=== PATIENT | male | born 1930 | race Caucasian/White ===

== ENCOUNTER 2017-08-16 17:38 | Emergency (ER) | payer MEDICARE, OTHER ==
[~2017-08-16] VITALS: Ht 162.6 cm; Wt 50.0 kg
[2017-08-16 17:42] VITALS: BP 189/95; PULSE 77; RESP 17; TEMP 98.7
[2017-08-16] MEDS ORDERED: SODIUM CHLORID 0.9% 500 ML INJ 500 ML IV ONE (18:15)
--- NOTE | 2017-08-16 18:28 | RADRPT ---
EXAM DATE: 08/16/2017 6:22 PM EDT AGE/SEX: 87 years / Male INDICATIONS: Fever. CLINICAL DATA: This is the patient's initial encounter. Patient reports that signs and symptoms have been present for 1 day and indicates a pain score of 0/10. MEDICAL/SURGICAL HISTORY: None. None. COMPARISON: No prior [facility] exams available for comparison. FINDINGS: Minimal left basilar streakiness is noted consistent with atelectasis and/or mild infiltrate. No pulm onary edema is noted. The heart is normal. Degenerative changes are noted throughout the thoracic spi ne. CONCLUSION: 1. Minimal left basilar streakiness is noted consistent with atelectasis and/or mild infiltrate. 2. Degenerative changes throughout the thoracic spine. Electronically signed by: Rigoberto Jama MD 08/16/2017 6:26 PM EDT
[2017-08-16 18:39] LABS: AUTOMATED NEUTROPHIL # 11.6 TH/MM3 (1.8-7.7); BASOPHIL # 0.1 TH/MM3 (0-0.2); BASOPHIL % 0.4 % (0.0-2.0); EOSINOPHIL % 0.1 % (0.0-4.0); HEMATOCRIT 38.2 % (39.0-51.0); HEMOGLOBIN 12.9 GM/DL (13.0-17.0); LYMPH % 2.4 % (9.0-44.0); LYMPHOCYTE # 0.3 TH/MM3 (1.0-4.8); MEAN CELL VOLUME 96.4 FL (80.0-100.0); MEAN CORPUSCULAR HEMOGLOBIN 32.6 PG (27.0-34.0); MEAN CORPUSCULAR HGB CONC 33.8 % (32.0-36.0); MEAN PLATELET VOLUME 7.8 FL (7.0-11.0); MONO % 7.4 % (0.0-8.0); NEUT % 89.7 % (16.0-70.0); PLATELET COUNT 202 TH/MM3 (150-450); RED BLOOD COUNT 3.96 MIL/MM3 (4.50-5.90); RED CELL DISTRIBUTION WIDTH 13.7 % (11.6-17.2); WHITE BLOOD COUNT 12.9 TH/MM3 (4.0-11.0)
[2017-08-16 18:51] LABS: INTERNATIONAL NORMALIZED RATIO 1.1 RATIO; PROTHROMBIN TIME - PATIENT 10.7 SEC (9.8-11.6)
[2017-08-16 18:52] LABS: ALBUMIN 3.4 GM/DL (3.4-5.0); ALT (GPT) 21 U/L (12-78); AST (GOT) 18 U/L (15-37); BICARBONATE 26.7 MEQ/L (21.0-32.0); BLOOD UREA NITROGEN 25 MG/DL (7-18); CALCIUM 8.7 MG/DL (8.5-10.1); CHLORIDE 102 MEQ/L (98-107); CREATININE 1.08 MG/DL (0.60-1.30); GLOMERULAR FILTRATION RATE 65 ML/MIN (>89); GLUCOSE,RANDOM 118 MG/DL (74-106); SODIUM (NA) 139 MEQ/L (136-145)
[2017-08-16 18:55] LABS: ALKALINE PHOSPHATASE 76 U/L (45-117); TOTAL BILIRUBIN ADULT 0.6 MG/DL (0.2-1.0); TOTAL PROTEIN 7.2 GM/DL (6.4-8.2)
[2017-08-16 19:07] LABS: BILIRUBIN, URINE NEG (NEG); BLOOD, URINE LARGE (NEG); GLUCOSE,URINE NEG (NEG); KETONE, URINE 10 mg/dL (NEG); NITRITE,URINE NEG (NEG); PH, URINE 7.5 (5.0-8.5); URINE LEUKOCYTE ESTERASE MOD (NEG)
[2017-08-16 19:12] LABS: URINE COLOR LIGHT-ORANGE (YELLW/STRAW)
[2017-08-16] MEDS ORDERED: CIPROFLOXACIN 400 MG PREMIX 200 ML IV ONE (19:45)
[2017-08-16] MEDS ORDERED: IOHEXOL 350 MG/ML 10 ML VIAL (for RAD DIAG) IVCONTRAST ONE (20:01)
[2017-08-16] MEDS ORDERED: CIPR-9 PO (20:23)
--- NOTE | 2017-08-16 20:23 | PD ---
HPI Chief Complaint: Complaint Time Seen by Provider: 17:44 Travel History International Travel<30 days: No Contact w/Intl Traveler<30days: No Traveled to known affect area: No History of Present Illness HPI Patient is an 87-year-old male who comes in complaining of hematuria. He says this is been going on for the past few days. Per daughter, he has been to [facility] 9 times for issues with urination. He has complained of pain on and off with defecating and urinating. 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 He denies nausea or vomiting. He has not had any fever or chills. Complains of some minor lower abdominal tenderness. Severity is mild to moderate. PFSH Past Medical History Medical History: Unable to Obtain Tetanus Vaccination: Unknown Influenza Vaccination: No Past Surgical History Surgical History: Unable to Obtain Social History Alcohol Use: No Tobacco Use: No Substance Use: No Allergies-Medications (Allergen,Severity, Reaction): Coded Allergies: No Allergy Information Available (Unverified , 08/16/17) Reported Meds & Prescriptions Reported Meds & Active Scripts Active Active Prescriptions or Reported Medications Unobtainable Review of Systems Except as stated in HPI: all other systems reviewed are Neg General / Constitutional: No: Fever, Chills HENT: No: Headaches, Lightheadedness Cardiovascular: No: Chest Pain or Discomfort Respiratory: No: Shortness of Breath Gastrointestinal: No: Nausea, Vomiting Genitourinary: Positive: Hematuria Skin: No Rash, No Change in Pigmentation Neurologic: No: Weakness, Dizziness Physical Exam Narrative GENERAL: Awake and alert, no acute distress. SKIN: Focused skin assessment warm/dry. No wounds or signs of infection. HEAD: Atraumatic. Normocephalic. EYES: Pupils equal and round. No scleral icterus. ENT: Mucous membranes pink and moist. NECK: Trachea midline. No JVD. CARDIOVASCULAR: Regular rate and rhythm. No murmur appreciated. RESPIRATORY: No accessory muscle use. Clear to auscultation. Breath sounds equal bilaterally. GASTROINTESTINAL: Abdomen soft, nondistended. Mild tenderness to palpation of the suprapubic area. Silverio in place, draining. MUSCULOSKELETAL: No obvious deformities. No clubbing. No cyanosis. No edema. NEUROLOGICAL: Awake and alert. No obvious cranial nerve deficits. Motor grossly within normal limits. Normal speech. PSYCHIATRIC: Appropriate mood and affect; insight and judgment normal. Data Data Last Documented VS Vital Signs Date Time Temp Pulse Resp B/P (MAP) Pulse Ox O2 Delivery O2 Flow Rate FiO2 08/16/17 17:42 98.7 77 17 189/95 (126) Orders Orders Iv Access Insert/Monitor (08/16/17 18:07) Complete Blood Count With Diff (08/16/17 18:07) Comprehensive Metabolic Panel (08/16/17 18:07) Urinalysis - C+S If Indicated (08/16/17 18:07) Act Partial Throm Time (Ptt) (08/16/17 18:07) Prothrombin Time / Inr (Pt) (08/16/17 18:07) Type And Screen (08/16/17 18:07) Sodium Chlorid 0.9% 500 Ml Inj (Ns 500 M (08/16/17 18:15) Lactic Acid (08/16/17 18:07) Chest, Single Ap (08/16/17 ) Urine Culture (08/16/17 18:15) Ct Abd/Pel W Iv Contrast(Rout) (08/16/17 ) Ciprofloxacin 400 Mg Premix (Cipro 400 M (08/16/17 19:45) Iohexol 350 Inj (Omnipaque 350 Inj) (08/16/17 20:01) Labs Laboratory Tests Test 08/16/17 18:15 White Blood Count 12.9 TH/MM3 Red Blood Count 3.96 MIL/MM3 Hemoglobin 12.9 GM/DL Hematocrit 38.2 % Mean Corpuscular Volume 96.4 FL Mean Corpuscular Hemoglobin 32.6 PG Mean Corpuscular Hemoglobin Concent 33.8 % Red Cell Distribution Width 13.7 % Platelet Count 202 TH/MM3 Mean Platelet Volume 7.8 FL Neutrophils (%) (Auto) 89.7 % Lymphocytes (%) (Auto) 2.4 % Monocytes (%) (Auto) 7.4 % Eosinophils (%) (Auto) 0.1 % Basophils (%) (Auto) 0.4 % Neutrophils # (Auto) 11.6 TH/MM3 Lymphocytes # (Auto) 0.3 TH/MM3 Monocytes # (Auto) 1.0 TH/MM3 Eosinophils # (Auto) 0.0 TH/MM3 Basophils # (Auto) 0.1 TH/MM3 CBC Comment DIFF FINAL Differential Comment Prothrombin Time 10.7 SEC Prothromb Time International Ratio 1.1 RATIO Activated Partial Thromboplast Time 21.2 SEC Urine Color LIGHT-ORANGE Urine Turbidity HAZY Urine pH 7.5 Urine Specific [place] 1.014 Urine Protein 100 mg/dL Urine Glucose (UA) NEG mg/dL Urine Ketones 10 mg/dL Urine Occult Blood LARGE Urine Nitrite NEG Urine Bilirubin NEG Urine Urobilinogen LESS THAN 2.0 MG/DL Urine Leukocyte Esterase MOD Urine RBC /hpf Microscopic Urinalysis Comment CATH-CULTURE IND Blood Urea Nitrogen 25 MG/DL Creatinine 1.08 MG/DL Random Glucose 118 MG/DL Total Protein 7.2 GM/DL Albumin 3.4 GM/DL Calcium Level 8.7 MG/DL Alkaline Phosphatase 76 U/L Aspartate Amino Transf (AST/SGOT) 18 U/L Alanine Aminotransferase (ALT/SGPT) 21 U/L Total Bilirubin 0.6 MG/DL Sodium Level 139 MEQ/L Potassium Level 4.1 MEQ/L Chloride Level 102 MEQ/L Carbon Dioxide Level 26.7 MEQ/L Anion Gap 10 MEQ/L Estimat Glomerular Filtration Rate 65 ML/MIN Lactic Acid Level 1.1 mmol/L MDM Medical Decision Making Medical Screen Exam Complete: Yes Emergency Medical Condition: Yes Differential Diagnosis Hematuria versus cystitis versus obstruction Narrative Course Patient is an 87-year-old male who comes in complaining of hematuria. Exam shows mild suprapubic tenderness. Silverio is in place, there is blood in the Silverio bag. Silverio was flushed and clear urine came out. Labs sent show mild elevation white blood cell count, urine is dirty, possible UTI. Patient given a dose of Cipro, given fluids. Family is concerned and would like imaging done of his abdomen. CT of abdomen and pelvis first performed, shows the Silverio to be inflated in his penis. This was removed, coude inserted. Patient to be discharged on Cipro. Case management consulted for help with home health care. He has someone coming tonight to help him and they will work on arranging something for him tomorrow. Diagnosis Primary Impression: Hematuria Qualified Codes: R31.9 - Hematuria, unspecified Additional Impression: Silverio catheter problem Qualified Codes: T83.9XXA - Unspecified complication of genitourinary prosthetic device, implant and graft, initial encounter Patient Instructions: Silverio Catheter Placement and Care (ED), General Instructions, Hematuria (ED) Additional Instructions: Follow-up with urology. Be careful to not pull on your Silverio catheter. Take all of your antibiotic. Return to the ED as needed for any worsening symptoms. Scripts Ciprofloxacin (Cipro) 500 Mg Tab 500 MG PO BID for Infection for 10 Days, #20 TAB 0 Refills Prov: Elizabeth Price MD 08/16/17 Disposition: 01 DISCHARGE HOME Condition: Stable Elizabeth Price MD Aug 16, 2017 20:23
--- NOTE | 2017-08-16 20:27 | RADRPT ---
EXAM DATE: 08/16/2017 8:06 PM EDT AGE/SEX: 87 years / Male INDICATIONS: Gross hematuria. Diffuse abdominal pain. CLINICAL DATA: This is the patient's initial encounter. Patient reports that signs and symptoms have been present for 4 - 6 days and indicates a pain score of 4/10. MEDICAL/SURGICAL HISTORY: . Unable to obtain. . Unable to obtain. ORAL CONTRAST: No oral contrast ingested. RADIATION DOSE: 4.60 CTDI (mGy) COMPARISON: No prior [facility] exams available for comparison. TECHNIQUE: Multiple contiguous axial images were obtained through the abdomen and pelvis following b olus infusion of 80 ml Omnipaque 350 (iohexol) nonionic water-soluble contrast as a single exam dos e. No oral contrast ingested. Using automated exposure control and adjustment of the mA and/or kV ac cording to patient size, the radiation dose was kept as low as reasonably achievable to obtain optima l diagnostic quality images. FINDINGS: There is massive dilatation of the urinary bladder with mild bilateral hydronephrosis likel y related to bladder outlet obstruction. The prostate gland is markedly enlarged. There are scattered low-density lesions throughout the liver consistent with cysts with the largest measuring 19 mm. No biliary ductal dilatation is noted. The gallbladder is unremarkable. The spleen is normal. The pancre as is unremarkable. The adrenal glands are normal bilaterally. There are bilateral renal cysts with t he largest on the left measuring 2.6 cm. No solid renal mass is noted. The abdominal aorta is calcifi ed. There is aneurysmal dilatation of the infrarenal abdominal aorta which measures 2.9 cm AP by 2.8 cm transverse. The inferior vena cava is normal. There is no retroperitoneal lymphadenopathy. Uncompl icated colonic diverticulosis is noted. No acute diverticulitis is noted. Scattered fibrotic scarring is noted within the visualized lung bases. Mild degenerative changes and scoliosis of the lumbar spi ne are noted. CONCLUSION: 1. Massive dilatation of the urinary bladder with mild bilateral hydronephrosis likely related to bl adder outlet obstruction from a markedly enlarged prostate gland. 2. Multiple hepatic and bilateral renal cysts. 3. Aneurysmal dilatation of the infrarenal abdominal aorta measuring 2.9 x 2.8 cm. 4. Uncomplicated colonic diverticulosis. 5. Mild degenerative changes and scoliosis of lumbar spine. 6. Scattered fibrotic scarring within the lung bases. Electronically signed by: Rigoberto Jama MD 08/16/2017 8:26 PM EDT
--- NOTE | 2017-08-16 20:46 | HHI.FF ---
Face to Face Verification Diagnosis: (1) Hematuria (2) Silverio catheter problem Physical Therapy Order: Evaluate and Treat Occupational Therapy Order: Evaluate and Treat, Improve ADL Home Health Nursing Order: Medical education Silverio catheter maintenance Home Health Aide Order: To Assist In: Bathing and personal care, daycare teacher and meal prep Personnel Assistant Order: To Evaluate: Support services I have seen patient Miguel A aBrth on 08/16/17. My clinical findings support the need for the requested home health care services because: Deconditioned w/ increased weakness Limited ability to care for self I certify that my clinical findings support that this patient is homebound because: Unsteady gait/balance Elizabeth Price MD Aug 16, 2017 20:46
== END 2017-08-16 21:26 | disposition home or self-care (01) ==
LOC: NEPE 17:38
DX: T83.9XXA Unspecified complication of genitourinary prosthetic device, implant and graft, initial encounter (principal); R31.9 Hematuria, unspecified; A48.8 Other specified bacterial diseases; M51.14 Intervertebral disc disorders with radiculopathy, thoracic region; K76.89 Other specified diseases of liver; N28.1 Cyst of kidney, acquired; K57.30 Diverticulosis of large intestine without perforation or abscess without bleeding
CPT/HCPCS: 51703; 71045; 74177; 80053; 81001; 83605; 85025; 85610; 85730; 86850; 86900; 86901; 87077; 87086; 87186; 96374; 99285; J0744; J7040; Q9967